=== PATIENT | female | born 1955 | race Caucasian/White ===

== ENCOUNTER 2019-01-20 06:59 | Day surgery (SDC) | payer BC ==
[~2019-01-20] VITALS: Ht 167.6 cm; Wt 49.4 kg
[~2019-01-20 06:59] MED LIST: C 50TAB PO; L-LY500T6 PO; LATA0.0015 OU; MULTCAP PO; NS 1,000 ML IV ONE
[2019-01-20] MEDS ORDERED: PROPOFOL 200 MG/20 ML VIAL As Ordered ONE (08:38)
[2019-01-20] MEDS ORDERED: LIDOCAINE 2% INJ 100 MG/5 ML SDV (FOR ANES.) As Ordered ONE (08:39)
--- NOTE | 2019-01-20 08:49 | ROOR ---
Patient Name: Bernarda Johnston Procedure Date: 01/20/2019 8:14 AM Date of : 1955 Age: 63 Room: [facility] Gender: Female Note Status: Finalized Procedure: Colonoscopy Indications: Screening for colorectal malignant neoplasm Providers: Chito Carter Jr, MD Referring MD: LISA WATKINS MD Requesting Provider: Medicines: Propofol per Anesthesia Complications: No immediate complications. Procedure: Pre-Anesthesia Assessment: - Prior to the procedure, a History and Physical was performed, and patient medications and allergies were reviewed. The patient is competent. The risks and benefits of the procedure and the sedation options and risks were discussed with the patient. All questions were answered and informed consent was obtained. Patient identification and proposed procedure were verified by the physician and the nurse in the pre-procedure area and in the procedure room. Mental Status Examination: alert and oriented. Airway Examination: normal oropharyngeal airway and neck mobility. Respiratory Examination: clear to auscultation. CV Examination: normal. ASA Grade Assessment: II - A patient with mild systemic disease. After reviewing the risks and benefits, the patient was deemed in satisfactory condition to undergo the procedure. The anesthesia plan was to use moderate sedation / analgesia (conscious sedation). Immediately prior to administration of medications, the patient was re-assessed for adequacy to receive sedatives. The heart rate, respiratory rate, oxygen saturations, blood pressure, adequacy of pulmonary ventilation, and response to care were monitored throughout the procedure. The physical status of the patient was re-assessed after the procedure. The Colonoscope was introduced through the anus and advanced to the cecum, identified by appendiceal orifice and ileocecal valve. The colonoscopy was performed without difficulty. The patient tolerated the procedure well. The quality of the bowel preparation was adequate. Findings: The rectum, recto-sigmoid colon, descending colon, transverse colon, ascending colon, cecum, appendiceal orifice and ileocecal valve appeared normal. A few small-mouthed diverticula were found in the sigmoid colon and hepatic flexure. The sigmoid colon, transverse colon and ascending colon were significantly redundant. Impression: - The rectum, recto-sigmoid colon, descending colon, transverse colon, ascending colon, cecum, appendiceal orifice and ileocecal valve are normal. - Diverticulosis in the sigmoid colon and at the hepatic flexure. - Redundant colon. - No specimens collected. Recommendation: - Discharge patient to home (ambulatory). - Repeat colonoscopy in 10 years for screening purposes. Chito Carter MD Chito Carter Jr, MD 01/20/2019 8:49:00 AM Electronically signed by Chito Carter Jr, MD Number of Addenda: 0 Note Initiated On: 01/20/2019 8:14 AM Estimated Blood Loss: Estimated blood loss: none.
[2019-01-20 09:00] VITALS: BP 138/59
== END 2019-01-20 09:11 | disposition home or self-care (01) ==
LOC: M OPP 06:59
PROVIDERS: ATTEND Surgery
DX: Z12.11 Encounter for screening for malignant neoplasm of colon (principal); K57.30 Diverticulosis of large intestine without perforation or abscess without bleeding; Q43.8 Other specified congenital malformations of intestine; M19.90 Unspecified osteoarthritis, unspecified site; F41.9 Anxiety disorder, unspecified; G47.30 Sleep apnea, unspecified; R06.83 Snoring; Z88.8 Allergy status to other drugs, medicaments and biological substances; Z79.899 Other long term (current) drug therapy; Z87.891 Personal history of nicotine dependence

== ENCOUNTER → 2019-02-04 | Outpatient (REF) | payer BC ==
[~2019-02-04] MED LIST changes: -NS 1,000 ML IV ONE
== END ==
LOC: M LAB REF 17:36
PROVIDERS: ATTEND Dermatology
DX: D22.5 Melanocytic nevi of trunk (principal); Z85.828 Personal history of other malignant neoplasm of skin

== ENCOUNTER → 2021-09-20 | Outpatient (REF) | payer MEDICARE, BC | LOC: M SFHCDERM 08:06 | PROVIDERS: ATTEND Nurse Practitioner Family | DX: L57.0 Actinic keratosis (principal); L72.0 Epidermal cyst ==

== ENCOUNTER → 2022-01-06 | Outpatient (REF) | payer MEDICARE, BC | LOC: M SFHCDERM 13:50 | PROVIDERS: ATTEND Nurse Practitioner Family | DX: D22.39 Melanocytic nevi of other parts of face (principal) ==

== ENCOUNTER → 2022-03-21 | Outpatient (CLI) | payer MEDICARE, BC | LOC: M RAD 13:14 | PROVIDERS: ATTEND Physician Assistant Medical | DX: J32.9 Chronic sinusitis, unspecified (principal) ==

== ENCOUNTER → 2022-05-07 | Outpatient (CLI) | payer MEDICARE, BC ==
[~2022-05-07] MED LIST changes: +GNP250TA9 PO; +TRAM50TA2 PO; +VITA-183 PO; +VITMTA PO
[2022-05-07 08:58] VITALS: BP 138/82
== END ==
LOC: M WHCPRO 09:01
PROVIDERS: ATTEND Surgery
DX: R92.8 Other abnormal and inconclusive findings on diagnostic imaging of breast (principal); N63.20 Unspecified lump in the left breast, unspecified quadrant

== ENCOUNTER → 2022-05-21 | Outpatient (CLI) | payer MEDICARE, BC | LOC: M WHC 14:58 | PROVIDERS: ATTEND Surgery | DX: R92.8 Other abnormal and inconclusive findings on diagnostic imaging of breast (principal) | CPT/HCPCS: 77065; G0463 ==

== ENCOUNTER → 2022-05-30 | Outpatient (CLI) | payer MEDICARE, BC ==
[~2022-05-30] MED LIST changes: -TRAM50TA2 PO
== END ==
LOC: M LABSMTC 11:12
PROVIDERS: ATTEND Anesthesiology
DX: Z01.812 Encounter for preprocedural laboratory examination (principal)

== ENCOUNTER 2022-06-03 07:16 | Day surgery (SDC) | payer MEDICARE, BC ==
[~2022-06-03] VITALS: Ht 167.6 cm; Wt 53.1 kg
[~2022-06-03 07:16] MED LIST changes: +LR 1,000 ML IV SCH; +ceFAZolin SOD 2 GM in IV 1 EA IV ONE
[2022-06-03] MEDS ORDERED: HEPARIN SOD (PORCINE) 5000UNITS/ML 1ML VIAL/SYRINGE SC ONE (07:45)
[2022-06-03] MEDS ORDERED: BUPIVACAINE HCL 0.25% 30ML VIAL As Ordered ONE (08:18)
[2022-06-03] MEDS ORDERED: LIDOCAINE 1% SDV 30ML VIAL As Ordered ONE (08:18)
[2022-06-03] MEDS ORDERED: propofoL 200 MG/20 ML VIAL As Ordered ONE (08:47)
[2022-06-03] MEDS ORDERED: ONDANSETRON 4MG 2ML VIAL As Ordered ONE (08:47)
[2022-06-03] MEDS ORDERED: LIDOCAINE 2% 100MG/5ML SDV (FOR ANES.) As Ordered ONE (08:47)
[2022-06-03] MEDS ORDERED: MIDAZOLAM INJ 2MG/2ML VIAL As Ordered ONE (08:47)
[2022-06-03] MEDS ORDERED: fentaNYL 100 MCG/2 ML INJECTION As Ordered ONE (08:47)
[2022-06-03] MEDS ORDERED: ePHEDrine SULFATE 25 MG/5 ML(5MG/ML) SYRINGE As Ordered ONE (08:55)
[2022-06-03] MEDS ORDERED: ACETAMINOPHEN 1000MG 100ML IV BAG As Ordered ONE (09:06)
[2022-06-03] MEDS ORDERED: TRAM50TA2 PO (09:56)
[2022-06-03] MEDS ORDERED: oxyCODONE 5MG TAB PO PRN (10:00)
[2022-06-03] MEDS ORDERED: LR 1,000 ML IV SCH (10:00)
[2022-06-03] MEDS ORDERED: HYDROMORPHONE HCL 0.5 MG/ 0.5 ML SYRINGE IV PRN (10:00)
[2022-06-03] MEDS ORDERED: fentaNYL 100 MCG/2 ML INJECTION IV PRN (10:00)
[2022-06-03] MEDS ORDERED: ONDANSETRON 4MG 2ML VIAL IV PRN (10:00)
[2022-06-03 11:15] VITALS: BP 135/73
== END 2022-06-03 11:57 | disposition home or self-care (01) ==
LOC: M SDC 07:16
PROVIDERS: ATTEND Surgery
DX: L08.9 Local infection of the skin and subcutaneous tissue, unspecified (principal); N61.1 Abscess of the breast and nipple; N60.32 Fibrosclerosis of left breast; M19.90 Unspecified osteoarthritis, unspecified site; G47.30 Sleep apnea, unspecified; Z88.8 Allergy status to other drugs, medicaments and biological substances; Z79.899 Other long term (current) drug therapy; Z85.828 Personal history of other malignant neoplasm of skin
CPT/HCPCS: 19101; 36415; 86850; 86900; 86901; 88307; J0131; J0690; J1100; J1644; J2250; J2405; J3010

== ENCOUNTER → 2022-08-07 | Outpatient (CLI) | payer MEDICARE, BC ==
[~2022-08-07] MED LIST changes: -LR 1,000 ML IV SCH; +TRAM50TA2 PO; -ceFAZolin SOD 2 GM in IV 1 EA IV ONE
== END ==
LOC: M PLALAB 10:24
PROVIDERS: ATTEND Nurse Practitioner Family
DX: Z12.4 Encounter for screening for malignant neoplasm of cervix (principal); Z80.41 Family history of malignant neoplasm of ovary; N95.8 Other specified menopausal and perimenopausal disorders